=== PATIENT | female | born 1960 | race Caucasian/White ===

== ENCOUNTER 2019-10-04 13:25 | Emergency (ER) | payer BC, OTHER ==
[2019-10-04 13:43] LABS: BILIRUBIN,URINE NEGATIVE (NEGATIVE); GLUCOSE, URINE (UA) NEGATIVE (NEGATIVE); KETONES,URINE (UA) NEGATIVE (NEGATIVE); LEUKOCYTE ESTERASE, URINE MODERATE (NEGATIVE); NITRITE,URINE NEGATIVE (NEGATIVE); OCCULT BLOOD,URINE LARGE (NEGATIVE); PH,URINE 6.5 PH (5.0-7.5); PROTEIN,URINE NEGATIVE (NEGATIVE); UROBILINOGEN,URINE 0.2 (NORMAL) E.U./dL (NORMAL)
[2019-10-04 13:44] LABS: CLARITY,URINE CLEAR (CLEAR)
[2019-10-04 13:51] LABS: BACTERIA,URINE Rare /HPF (None Seen); RBC,URINE 0-5 /HPF (0-5); SQUAMOUS EPITHELIAL CELL,UR NONE SEEN (<= Few)
--- NOTE | 2019-10-04 15:45 | ED Physician Documentation ---
PD HPI FEMALE - Stated complaint Stated Complaint: FEMALE - Chief complaint Chief Complaint: UTI - History obtained from History obtained from: Patient - History of Present Illness Timing - onset: Today Timing - duration: Hours Timing - details: Abrupt onset Associated symptoms: Abdominal pain, Dysuria, Urinary frequency, Hematuria. No: Fever, Back pain, Vaginal bleeding Contributing factors: No: Recently seen: Not recently seen - Additional information Additional information: This is a 59-year-old woman who presents with complaints that she had some abdominal pain this morning and felt like she had it was a little bit nauseous and then had some diarrhea then she was having some urinary urgency frequency and dysuria. She saw a little bit of blood on her toilet paper when she wiped. She is been nauseous and had some diarrhea but no vomiting. She felt hot earlier. She is not had any back pain. She is not diabetic. No fever. Review of Systems Constitutional: denies: Fever GI: reports: Abdominal Pain, Nausea, Diarrhea. denies: Vomiting : reports: Dysuria, Frequency, Hematuria Musculoskeletal: reports: Back pain PD PAST MEDICAL HISTORY - Present Medications Home Medications: Ambulatory Orders Medication Instructions Recorded Confirmed Estradiol 0.5 mg PO DAILY 05/20/14 05/20/14 Levothyroxine [Synthroid] 25 mcg PO QDAC 05/20/14 05/20/14 Nitrofurantoin Monohyd/M-Cryst 100 mg PO BID #10 capsule 10/04/19 [Macrobid 100 mg Capsule] Phenazopyridine HCl [Pyridium] 200 mg PO TID PRN #6 tablet 10/04/19 - Allergies Allergies/Adverse Reactions: Allergies Allergy/AdvReac Type Severity Reaction Status Date / Time Penicillins Allergy Unknown Verified 10/04/19 13:51 - Social History Does the pt smoke?: No Smoking Status: Never smoker PD ED PE NORMAL - Vitals Vital signs reviewed: Yes - General General: Alert and oriented X 3, No acute distress, Well developed/nourished - HEENT HEENT: Atraumatic, PERRL, EOMI, Moist mucous membranes - Neck Neck: Supple, no meningeal sign, No adenopathy - Respiratory Respiratory: No respiratory distress - Abdomen Abdomen: Normal bowel sounds, Soft, Non tender, No organomegaly - Back Back: No CVA TTP - Derm Derm: Normal color - Neuro Neuro: Alert and oriented X 3, patent prosecution paralegal 2-12 intact, No motor deficit, No sensory deficit, Normal speech - Psych Psych: Normal mood, Normal affect Results - Vitals Vitals: Vital Signs - 24 hr 10/04/19 10/04/19 13:48 15:46 Temperature 36.2 C L 36.4 C L Heart Rate 61 52 L Respiratory 18 14 Rate Blood Pressure 147/87 H 129/82 H O2 Saturation 100 99 Oxygen O2 Source Room air - Labs Labs: Laboratory Tests 10/04/19 13:35 Urine Color YELLOW Urine Clarity CLEAR Urine pH 6.5 Ur Specific [place] <=1.005 Urine Protein NEGATIVE Urine Glucose (UA) NEGATIVE Urine Ketones NEGATIVE Urine Occult Blood LARGE H Urine Nitrite NEGATIVE Urine Bilirubin NEGATIVE Urine Urobilinogen 0.2 (NORMAL) Ur Leukocyte Esterase MODERATE H Urine RBC 0-5 Urine WBC >25 H Ur Squamous Epith Cells NONE SEEN Urine Bacteria Rare Ur Microscopic Review INDICATED Urine Culture Comments INDICATED PD MEDICAL DECISION MAKING - ED course Complexity details: reviewed results, d/w patient ED course: Urinalysis is positive. The patient will be treated with Macrobid and Pyridium. Encouraged to drink lots of water. Follow-up with her primary care provider if not improving. Departure - Departure Disposition: Home, Self Care Clinical Impression: Urinary tract infection Qualifiers: Urinary tract infection type: site unspecified Hematuria presence: with hematuria Qualified Code(s): N39.0 - Urinary tract infection, site not specified; R31.9 - Hematuria, unspecified Condition: Good Instructions: ED UTI Cystitis Female Follow-Up: Provider,Other [Primary Care Provider] - Prescriptions: Nitrofurantoin Monohyd/M-Cryst [Macrobid 100 mg Capsule] 100 mg PO BID #10 capsule Phenazopyridine HCl [Pyridium] 200 mg PO TID PRN #6 tablet PRN Reason: dysuria Comments: Make sure that you are drinking plenty of water. Take the Macrobid twice a day as prescribed for 7 days. Use the Pyridium if needed for urinary urgency or pain with urination up to 3 times a day. This will turn your urine bright orange. Follow-up with your primary care provider if your symptoms are not improving, you develop back pain, fever, or vomiting.
[2019-10-04 15:47] VITALS: BP 129/82
== END 2019-10-04 16:17 | disposition home or self-care (01) ==
LOC: ED 13:25
DX: N39.0 Urinary tract infection, site not specified (principal); R31.9 Hematuria, unspecified; R11.0 Nausea; R19.7 Diarrhea, unspecified
CPT/HCPCS: 81001; 81003; 87086; 87181; 99283; 99284